=== PATIENT | male | born 1960 | race Two or more races ===

== ENCOUNTER 2024-09-02 09:01 | Emergency (ER) | payer OTHER ==
[~2024-09-02] VITALS: Ht 180.3 cm; Wt 97.5 kg
[2024-09-02] MEDS ORDERED: VALSARTAN160 MG PO (09:16)
[2024-09-02] MEDS ORDERED: DICLOFENAC SODI75 MG PO (09:16)
[2024-09-02 09:18] VITALS: BP 122/77; O2SAT 100
[2024-09-02] MEDS ORDERED: DEXAMETHASONE SODIUM PHOSPHATE 4 MG/ML VIAL IM STA (10:03)
[2024-09-02] MEDS ORDERED: OxyCODONE HCL/APAP UD (PERCOCET) PO STA (10:07)
[2024-09-02] MEDS ORDERED: MEDROLPACK PO (10:12)
== END 2024-09-02 10:27 | disposition home or self-care (01) ==
LOC: ER 09:03
DX: M25.561 Pain in right knee (principal); I10 Essential (primary) hypertension
CPT/HCPCS: 96372; 99282; J1100